=== PATIENT | female | born 1955 | race Caucasian/White ===

== ENCOUNTER 2020-10-04 14:10 | Outpatient (CLI) | payer MEDICARE, SELFPAY | END 2020-10-04 14:11 | disposition home or self-care (01) | LOC: ANHCOVIDVC 14:10 | PROVIDERS: PCP Family Medicine | DX: Z23 Encounter for immunization (principal) | CPT/HCPCS: 0001A; 91300 ==

== ENCOUNTER 2020-10-25 14:11 | Outpatient (CLI) | payer MEDICARE, SELFPAY | END 2020-10-25 14:12 | disposition home or self-care (01) | LOC: ANHCOVIDVC 14:11 | PROVIDERS: PCP Family Medicine | DX: Z23 Encounter for immunization (principal) | CPT/HCPCS: 0002A; 91300 ==

== ENCOUNTER → 2022-07-10 11:05 | Outpatient (CLI) | payer MEDICARE, SELFPAY ==
--- NOTE | ~2022-07-10 | US_ITS ---
EXAMINATION: US carotid duplex BI DATE: 07/10/2022 11:42 INDICATION: Stenosis of left carotid artery. TECHNIQUE: Grayscale, color Doppler, and pulsed Doppler images of the cervical carotid arteries were obtained. The degree of vessel stenosis is placed in one of the following categories: normal, <50%, 5 0-69%, >=70% but less than near-occlusion, near-occlusion, or total occlusion. Note that percent sten osis relative to normal distal artery lumen diameter is indirectly measured from velocity measurement s as described by Paulino, et al. Radiology 2003; 229:340-346. COMPARISON: None. FINDINGS: RIGHT: The right common carotid artery (CCA) peak systolic velocity (PSV) is 55 cm/s. The right internal car otid artery (ICA) is totally occluded. There is antegrade flow in the right vertebral artery. LEFT: The left CCA PSV is 75 cm/s. The left ICA PSV is 820 cm/s. The left ICA end-diastolic velocity (EDV) is 346 cm/s. The left ICA/CCA PSV ratio is 11.0. Grayscale and color Doppler images yield an estimate of >=70% diameter reduction from plaque in the ICA. There is antegrade flow in the left vertebral ar maria ines. IMPRESSION: 1. Total occlusion of right internal carotid artery. 2. >=70% stenosis in the left internal carotid artery, but less than near occlusion. Reviewed, dictated and finalized at location E. R ASSEMBLER IMPRESSION: 1. Total occlusion of right internal carotid artery. 2. >=70% stenosis in the left internal carotid artery, but less than near occlu kylee.
== END ==
PROVIDERS: PCP Family Medicine; Visit Provider Family Medicine
DX: I65.22 Occlusion and stenosis of left carotid artery (principal); I10 Essential (primary) hypertension; F17.210 Nicotine dependence, cigarettes, uncomplicated
CPT/HCPCS: 93880

== ENCOUNTER 2022-10-03 13:14 | Emergency (ER) | payer MEDICARE, SELFPAY ==
[2022-10-03] VITALS (47 sets, daily range): BP systolic 86–194; BP diastolic 42–132; PULSE 56–89; RESP 12–23; TEMP 35.7–36.8; O2SAT 93–100
--- NOTE | ~2022-10-03 | XR_ITS ---
EXAMINATION: XR chest ET placement DATE: 10/03/2022 14:14 INDICATION: Intubation. TECHNIQUE: A single frontal view of the chest was obtained. COMPARISON: Chest 2 views 08/06/2019 FINDINGS: Sal B lines are noted, consistent with mild pulmonary edema. No pleural effusion or pneu mothorax. The endotracheal tube tip is 3.6 cm above the mona. The nasogastric tube tip is in the di stal stomach. A stent overlies the left neck. Surgical clips overlie the left neck. IMPRESSION: 1. Mild pulmonary edema. Reviewed, dictated and finalized at location A. VERY TECH IMPRESSION: 1. Mild pulmonary edema.
--- NOTE | ~2022-10-03 | CT_ITS ---
EXAMINATION: CTA brain carotid DATE: 10/03/2022 16:24 INDICATION: Altered mental status TECHNIQUE: Computed tomographic angiography (CTA) of the head was performed without and with 100 mL O mnipaque-350 intravenous contrast. CTA of the neck was performed with intravenous contrast. The dose- length product was 1820.99 mGy-cm. Maximum intensity projection and volume rendered 3D-reconstruction s were created by the technologist on a separate workstation. Automated exposure control and iterativ e reconstruction technique were employed. COMPARISON: None. FINDINGS: HEAD CTA: There is acute subarachnoid hemorrhage in the bilateral frontal and parietal regions. There is a subtle area of hypoattenuation in the left frontal lobe. The ventricles are normal. There is no abnormal mass effect or midline shift. The laws-white matter differentiation is normal. The basal ci sterns are patent. The orbits are normal. There is opacification of the right nasal cavity. There is a right parietal scalp soft tissue hematoma. There is no significant stenosis of the basilar artery or posterior cerebral arteries. There is no si gnificant stenosis of the intracranial internal carotid arteries or the anterior or middle cerebral a rteries. The anterior communicating artery and posterior communicating arteries are normal. There is no aneurysm. NECK CTA: There is multinodular goiter of the thyroid. The submandibular and parotid glands are symme tric. There is no lymphadenopathy. There are no masses identified. The airway is unremarkable. There is mild cervical spondylosis. There is dependent atelectasis in the visualized lung apices. The super ior mediastinum is unremarkable. The right internal carotid is occluded. There is an endoluminal stent in the left carotid artery. The re is 0% stenosis of the proximal left internal carotid artery relative to normal distal artery lumen diameter. IMPRESSION: 1. Acute subarachnoid hemorrhage in the bilateral frontal and parietal regions, likely posttraumatic given the right parietal scalp hematoma. 2. Occluded proximal right internal carotid artery. 3. 0% stenosis of the proximal left internal carotid artery relative to normal distal artery lumen di ameter. 4. Subtle area of low attenuation in the left frontal lobe, possibly prior infarct. These findings were discussed with Dr. Janel Minor MD in the Emergency Department at [address] [facility] on 10/03/2022. Reviewed, dictated and finalized at location F. K BREAKER OPERATOR IMPRESSION: 1. Acute subarachnoid hemorrhage in the bilateral frontal and parietal regions, likely posttraumatic given the right parietal scalp hematoma. 2. Occluded proximal right internal carotid artery. 3. 0% stenosis of the proximal left internal carotid artery relative to normal distal artery lumen diameter. 4. Subtle area of low attenuation in the left frontal lobe, possibly prior infa rct. These findings were discussed with Dr. Janel Minor MD in the Emergency Department at 1654 hours on 10/03/2022.
--- NOTE | 2022-10-03 13:24 | ECG_ITS ---
Measurements Intervals [place] Rate: 61 P: 58 [place]: 164 QRS: 14 QRSD: 102 T: 3 QT: 486 QTc: 490 Interpretive Statements SINUS RHYTHM CONSIDER INFERIOR INFARCT, AGE INDETERMINATE BASELINE ARTIFACT- V1, V3-V4 ABNORMAL ECG NO PREVIOUS ECG AVAILABLE FOR COMPARISON Electronically Signed On 10-03-2022 16:56:06 PASSENGER TRAIN BRAKER by aNvi Watts D.O.
--- NOTE | 2022-10-03 13:29 | ED.AMS ---
HPI - Altered Mental Status General Chief Complaint: Altered Mental Status Stated Complaint: Code Stroke History of Present Illness HPI narrative: Patient is a 67-year-old female presenting with altered mental status. History is obtained from EMS. Patient reportedly fell so her called ambulance. is reportedly very poor historian. For EMS, patient was altered and combative on scene. She was thrashing in all extremities. On arrival, patient is much Colmer though she remains significantly altered. She responds to painful stimuli in all extremities. She is randomly vocalizing profanities. Related Data Allergies Allergy/AdvReac Type Severity Reaction Status Date / Time THA Inhibitors Allergy Severe ANGIOEDEMA Verified 10/04/21 10:04 clindamycin Allergy Severe Diarrhea Verified 10/04/21 10:04 quinapril Allergy Severe ANGIOEDEMA Verified 10/04/21 10:04 Penicillins Allergy Intermediate Unknown Verified 10/04/21 10:04 ketorolac AdvReac Severe Confusion Verified 10/04/21 10:04 Review of Systems Review of Systems: ROS unobtainable: Yes unobtainable due to mental status [facility] Past Medical History Medical History Ankle fracture, right Bronchitis CAD (coronary artery disease) of artery bypass graft Colitis Depression Diverticulitis GI bleed Hypertension Irritable bowel syndrome Pneumonia Social History Social History Smoking status: Never smoker Gender identity (if verbalized by the patient): Female Exam Narrative: GENERAL: Obese elderly female laying in bed, intermittently yelling profanities HEAD: Normocephalic, atraumatic. EYES: PERRLA and EOMI. ENT: Nares clear, no rhinorrhea or epistaxis. Mucous membranes dry, small amount of blood is noted in her mouth NECK: Supple. CHEST: Clear to auscultation. No respiratory distress. healing incision left chest wall HEART: Regular rate and rhythm. Normal peripheral pulses. ABDOMEN: Soft, nontender, nondistended, multiple ecchymoses right abdominal wall in various stages of healing EXTREMITIES: Normal range of motion. No edema. SKIN: Warm, dry, no rash. NEURO: Patient is altered, moving all extremities spontaneously, withdraws to painful stimuli in all extremities, unable to complete full neuro exam due to altered state PSYCH: Intermittently combative Course Vital Signs Vital signs: Vital Signs Pulse Rate 82 10/03/22 13:20 Respiratory Rate 23 H 10/03/22 13:20 Blood Pressure 188/106 H 10/03/22 13:20 Pulse Oximetry 96 10/03/22 13:20 Oxygen Delivery Room Air 10/03/22 13:20 Temperature 98.3 F 10/03/22 18:00 Pulse Rate 70 10/03/22 19:20 Respiratory Rate 18 10/03/22 19:20 Blood Pressure 163/131 H 10/03/22 19:20 Pulse Oximetry 100 10/03/22 19:20 Oxygen Delivery Mechanical Ventilation 10/03/22 18:01 Oxygen Flow Rate 15 10/03/22 13:37 Fraction of Inspired Oxygen 40 10/03/22 18:01 Procedures Intubation Intubation #1: Intubation Date: 10/03/22 Intubation Time: 13:50 sedative: Etomidate Mg Given: 20 paralytic: Succinylcholine Mg Given: 150 Laryngoscope: fiber optic video scope Tube Size (cm): 7.5 Method of Intubation: orotracheal Number of Attempts: 1 Tube Secured Depth (cm): 21 Tube Secured Location: teeth Tube Placement Confirmation: visualized tube passing through cords, equal breath sounds bilaterally, no breath sounds over epigastrium and confirmation by capnometry Patient Tolerated Procedure: well Intubation Complications: none MDM - Altered Mental Status MDM Narrative Medical decision making narrative: 67-year-old female presenting with altered mental status after a fall. Patient is hypertensive, otherwise vitals are within normal limits. Exam is remarkable for the above. Patient was initially taken imme
[2022-10-03 13:41] LABS: Estimated CRCL calculation 84 ml/min; Estimated Glomerular Filt Rate > 60
--- NOTE | 2022-10-03 13:46 | PC.NURSE ---
return from ct. pt post ictal. room prepped for intubation. resp at bedside. 1346 etomidate 20 mg ivp 1346 succ 150 mg ivp 1347 7.5 et tube placed 21 @ lip. positive color change. breath sounds noted through lung medellin.
[2022-10-03 14:02] LABS: Basophils Absolute Auto 0.1 K/mm3 (0.0-0.1); Basophils Percent Auto 0.5 % (0.2-1.2); Eosinophils Absolute Auto 0.1 K/mm3 (0-0.3); Eosinophils Percent Auto 0.5 % (0-4.4); Hematocrit 39.2 % (37.0-47.0); Hemoglobin 12.3 g/dL (12.0-15.0); Immature Granulocyte Absolute 0.05 K/mm3 (0.00-0.031); Immature Granulocyte Percent A 0.5 % (0-0.5); Lymphocytes Absolute Auto 0.94 K/mm3 (0.9-3.2); Lymphocytes Percent Auto 8.6 % (18.3-44.2); Mean Corpuscular HGB Conc 31.4 g/dl (32-36); Mean Corpuscular Hemoglobin 27.8 pg (26-34); Mean Corpuscular Volume 88.5 fl (80-100); Monocytes Absolute Auto 0.4 K/mm3 (0.1-0.6); Monocytes Percent Auto 3.3 % (2.6-8.5); Neutrophils Absolute Auto 9.5 K/mm3 (1.3-6.7); Neutrophils Percent Auto 86.6 % (45.5-73.1); Platelet Count Result 225 k/mm3 (150-375); Red Blood Count 4.43 M/mm3 (4.2-5.4); Red Cell Distribution Width 14.6 % (11.5-14.5); White Blood Count 10.9 K/mm3 (4.5-10.0)
[2022-10-03 14:13] LABS: INR 1.1; Prothrombin Time 13.7 Seconds (11.1-14.7)
[2022-10-03 14:14] LABS: Partial Thromboplastin Time 26.3 SECONDS (22.3-36.8)
[2022-10-03] MEDS: PROPOFOL IV EMULSION 100 ML 4.74 MG IV CONT (14:20)
[2022-10-03] MEDS: RAPID SEQUENCE INTUBATION KIT 1 EACH (14:24)
[2022-10-03 14:26] LABS: Alanine Aminotransferase 31 U/L (6-35); Albumin Level 4.3 g/dL (3.5-5.1); Alkaline Phosphatase 102 U/L (38-126); Anion Gap 11 mmol/L (8-16); Aspartate Amino Transferase 29 U/L (14-36); Bilirubin,Total 0.5 mg/dL (0.2-1.3); Blood Urea Nitrogen 20 mg/dL (7-17); Calcium 8.8 mg/dL (8.4-10.2); Carbon Dioxide 22 mmol/L (22-30); Chloride 106 mmol/L (98-107); Estimated CRCL calculation 94 ml/min; Estimated Glomerular Filt Rate > 60; Glucose 154 mg/dL (65-110); Potassium 4.2 mmol/L (3.4-5.0); Sodium 139 mmol/L (137-145)
[2022-10-03 14:38] LABS: Influenza A QL RT-PCR Negative (Negative); Influenza B QL RT-PCR Negative (Negative); RSV RNA, RT-PCR Negative (Negative); SARS-CoV-2 RNA PCR Negative
[2022-10-03 14:42] LABS: Appearance Urine Clear (Clear); Bacteria Urine None Seen /hpf; Bilirubin Urine Negative (Negative); Blood Urine 1+ (Negative); Color Urine Yellow (Yellow); Glucose Urine UA Negative (Negative); Ketones Urine Negative (Negative); Leukocyte Esterase Ur Negative LEU/UL (Negative); Nitrate Urine Negative (Negative); Protein Urine 2+ mg/dL (Negative); Specific Grav Ur 1.014 (1.001-1.035); Squamous Epithelial Cell Urine None seen /hpf (Few); Urobilinogen Urine 0.2 mg/dL (<2.0); WBC Urine 0-5 /hpf
[2022-10-03 14:44] LABS: Glucose Point of Care 161 mg/dl (65-105)
[2022-10-03 14:46] LABS: Lactic Acid Reflex 4.9 mmol/L (0.7-2.0); NT Pro B Type Natriuretic Pept 2610 pg/mL (19.9-100); Troponin I 0.101 ng/mL (0.000-0.034)
[2022-10-03 14:53] LABS: Add Urine Microscopic? YES
[2022-10-03] MEDS: FENTANYL 2,500MCG/NS250ML(*CRX 2,500 MCG/250 ML BAG IV CONT (15:10)
--- NOTE | 2022-10-03 16:15 | PC.NURSE ---
pt to ct via stretcher
[2022-10-03 16:58] LABS: Reflex Lactic Acid Yes or No Add Lactic
[2022-10-03] MEDS: PROPOFOL IV EMULSION 100 ML 28.44 MG IV CONT (17:33)
[2022-10-03 17:51] LABS: Lactic Acid 1.3 mmol/L (0.7-2.0)
[2022-10-03 17:55] LABS: Alveolar/Arterial O2 Gradient 203.1 mmHg; Base Excess ABG -2.5 mEq/l (+/-2.0); Device VENTILATOR; Fractional Inspired Oxygen 100 %; HCO3 ABG 21.6 mEq/l (22.0-26.0); Oxygen Content ABG 17.6 %vol (16.0-22.0); Oxygen Saturation ABG 99.9 % (95.0-100.0); Oxyhemoglobin 98.4 % THb (90.0-100.0); PCO2 ABG 35.1 mmHg (35.0-45.0); PO2 ABG 474.8 mmHg (80.0-100.0); PO2 FiO2 Ratio Arterial Blood 4.75 %; Site Drawn LEFT BRACHIAL; Total Hemoglobin 11.8 g/dL (12.0-18.0); pH ABG 7.407 (7.350-7.450)
[2022-10-03 17:56] LABS: Arterial Blood Gas PEEP 5 cmH2O; Arterial Blood Gas Tidal Volume 470 ml; Arterial Blood Gas Vent Mode CMV; Arterial Blood Gas Ventilator rate 18 /MIN
--- NOTE | 2022-10-03 17:56 | PC.NURSE ---
pt ann-marie [phone] wishes to be contacted with any updates
[2022-10-03 18:12] LABS: Troponin I 0.207 ng/mL (0.000-0.034)
--- NOTE | 2022-10-10 07:23 | PC.NURSE ---
late entry 10/03/22 pt transported to [facility] with diprivan and fentanyl infusing.
--- NOTE | 2022-10-14 09:36 | PC.NURSE ---
LATE ENTRY This note is being entered to document information to the patient's record. The following information was omitted on [10/03/22], by [Jackie PATRICK]. Iv propofol and fentanyl still infusing when patient was transferred.
== END 2022-10-03 19:20 | disposition short-term general hospital (02) ==
PROVIDERS: Emergency Provider Emergency Medicine; PCP Family Medicine
DX: S06.6XAA Traumatic subarachnoid hemorrhage with loss of consciousness status unknown, initial encounter (principal); R56.9 Unspecified convulsions; R79.89 Other specified abnormal findings of blood chemistry; Z20.822 Contact with and (suspected) exposure to COVID-19; I25.10 Atherosclerotic heart disease of native coronary artery without angina pectoris; I10 Essential (primary) hypertension; K58.9 Irritable bowel syndrome, unspecified; Z87.01 Personal history of pneumonia (recurrent); I65.21 Occlusion and stenosis of right carotid artery; R94.31 Abnormal electrocardiogram [ECG] [EKG]; W19.XXXA Unspecified fall, initial encounter
CPT/HCPCS: 31500; 36600; 70496; 70498; 80053; 81001; 82805; 82948; 83605; 83880; 84484; 85025; 85610; 85730; 87637; 93005; 96365; 96366; 96367; 99291; J0330; J2060; J2704; J3010; J7030; Q9967